=== PATIENT | female | born 1975 | race Caucasian/White ===

== ENCOUNTER → 2016-12-22 | Outpatient (CLI) | payer BC ==
[2016-12-22 11:34] LABS: Basophils # (A) 0.1 k/uL (0-0.2); Basophils % (A) 1 %; CH 29.7; CHCM 32.5; Eosinophils # (A) 0.1 k/uL (0-0.7); Eosinophils % (A) 1 %; HCT 46.4 % (34.0-46.0); HDW 2.19; HGB 14.4 gm/dL (11.4-16.0); Luc # (Auto) 0.14; Luc % (Auto) 2; Lymphocytes # (A) 2.9 k/uL (1.0-4.8); Lymphocytes % (A) 40 %; MCH 28.5 pg (25.0-35.0); MCHC 31.1 g/dL (31.0-37.0); MCV 91.7 fL (80.0-100.0); Mean Platelet Volume 6.5; Monocytes # (A) 0.3 k/uL (0-1.0); Monocytes % (A) 4 %; Neutrophils # (A) 3.7 k/uL (1.3-7.7); Neutrophils % (A) 52 %; RBC 5.06 m/uL (3.80-5.40); RDW 13.4 % (11.5-15.5); WBC 7.1 k/uL (3.8-10.6); WBC (Perox) 7.17
[2016-12-22 11:49] LABS: ALT 33 U/L (9-52); AST 24 U/L (14-36); Alkaline Phosphatase 61 U/L (38-126); Anion Gap 9 mmol/L; Blood Urea Nitrogen 20 mg/dL (7-17); Calcium 9.5 mg/dL (8.4-10.2); Carbon Dioxide 29 mmol/L (22-30); Chloride 104 mmol/L (98-107); Cholesterol 209 mg/dL (<200); Glucose 91 mg/dL (74-99); HDL Cholesterol 67 mg/dL (40-60); Non-African American GFR(MDRD) >60 (>60 ml/min/1.73 sqM); Potassium 4.5 mmol/L (3.5-5.1); Sodium 142 mmol/L (137-145); Total Bilirubin 0.6 mg/dL (0.2-1.3); Total Protein 7.6 g/dL (6.3-8.2); Triglycerides 127 mg/dL (<150)
== END | disposition home or self-care (01) ==
LOC: LABWHC1 10:52
PROVIDERS: ATTEND Physician Assistant Medical
DX: Z00.01 Encounter for general adult medical examination with abnormal findings (principal)
CPT/HCPCS: 36415; 80053; 80061; 84439; 84443; 85025

== ENCOUNTER → 2017-09-14 | Outpatient (CLI) | payer BC ==
--- NOTE | 2017-09-15 11:38 | MM ---
Reason for exam: screening (asymptomatic). Last mammogram was performed 1 year and 3 months ago. History: Patient is postmenopausal. Physical Findings: A clinical breast exam by your physician is recommended on an annual basis and results should be correlated with mammographic findings. MG Screening Mammo w CAD Bilateral CC and MLO view(s) were taken. Prior study comparison: June 23, 2016, bilateral MG screening mammo w CAD. April 10, 2015, bilateral MG screening mammo w CAD. The breast tissue is heterogeneously dense. This may lower the sensitivity of mammography. There is no discrete abnormality. No significant changes when compared with prior studies. ASSESSMENT: Negative, BI-RAD 1 RECOMMENDATION: Routine screening mammogram of both breasts in 1 year.
== END | disposition home or self-care (01) ==
LOC: RADMAMWWP 13:14
PROVIDERS: ATTEND Obstetrics & Gynecology
DX: Z12.31 Encounter for screening mammogram for malignant neoplasm of breast (principal)
CPT/HCPCS: 77067

== ENCOUNTER → 2018-10-16 | Outpatient (CLI) | payer BC ==
[2018-10-16 11:45] LABS: Basophils # (A) 0.1 k/uL (0-0.2); Basophils % (A) 1 %; Eosinophils # (A) 0.1 k/uL (0-0.7); Eosinophils % (A) 1 %; HCT 47.9 % (34.0-46.0); HGB 15.2 gm/dL (11.4-16.0); Lymphocytes % (A) 40 %; MCH 28.5 pg (25.0-35.0); MCHC 31.7 g/dL (31.0-37.0); MCV 89.7 fL (80.0-100.0); Mean Platelet Volume 6.5; Monocytes # (A) 0.2 k/uL (0-1.0); Monocytes % (A) 3 %; Neutrophils # (A) 3.9 k/uL (1.3-7.7); Neutrophils % (A) 53 %; Platelet Count 319 k/uL (150-450); RBC 5.34 m/uL (3.80-5.40); RDW 13.3 % (11.5-15.5); WBC 7.4 k/uL (3.8-10.6)
[2018-10-16 16:33] LABS: Albumin 4.6 g/dL (3.80-4.90); Albumin/Globulin Ratio 1.92 (1.60-3.17); Anion Gap 4.3 mmol/L (4.00-12.00); Calcium 9.6 mg/dL (8.7-10.3); Carbon Dioxide 28.7 mmol/L (21.6-31.8); Globulin 2.4 g/dL (1.6-3.3); Potassium 4.3 mmol/L (3.5-5.5); Total Bilirubin 0.4 mg/dL (0.2-1.2)
[2018-10-16 16:42] LABS: T4, Free (Free Thyroxine) 1.4 ng/dL (0.80-1.80)
== END ==
LOC: LABWHC1 11:10
PROVIDERS: ATTEND Physician Assistant Medical
DX: Z00.01 Encounter for general adult medical examination with abnormal findings (principal); E89.0 Postprocedural hypothyroidism; E78.5 Hyperlipidemia, unspecified
CPT/HCPCS: 36415; 80053; 80061; 84439; 84443; 85025

== ENCOUNTER → 2019-01-21 | Outpatient (CLI) | payer BC ==
--- NOTE | 2019-01-25 10:13 | MM ---
Reason for exam: screening (asymptomatic). Last mammogram was performed 1 year and 4 months ago. History: Patient is postmenopausal. Physical Findings: A clinical breast exam by your physician is recommended on an annual basis and results should be correlated with mammographic findings. MG Screening Mammo w CAD Bilateral CC and MLO view(s) were taken. Prior study comparison: September 14, 2017, bilateral MG screening mammo w CAD. June 23, 2016, bilateral MG screening mammo w CAD. The breast tissue is heterogeneously dense. This may lower the sensitivity of mammography. No suspicious abnormality. No significant changes when compared with prior studies. ASSESSMENT: Negative, BI-RAD 1 RECOMMENDATION: Routine screening mammogram of both breasts in 1 year.
== END | disposition home or self-care (01) ==
LOC: RADMAMWWP 08:51
PROVIDERS: ATTEND Family Medicine
DX: Z12.31 Encounter for screening mammogram for malignant neoplasm of breast (principal)
CPT/HCPCS: 77067

== ENCOUNTER → 2020-02-14 | Outpatient (CLI) | payer BC ==
--- NOTE | 2020-02-15 14:53 | MM ---
Reason for exam: screening (asymptomatic). Last mammogram was performed 1 year and 1 month ago. History: Patient is postmenopausal. Physical Findings: A clinical breast exam by your physician is recommended on an annual basis and results should be correlated with mammographic findings. MG Screening Mammo w CAD Bilateral CC and MLO view(s) were taken. Prior study comparison: January 21, 2019, bilateral MG screening mammo w CAD. September 14, 2017, bilateral MG screening mammo w CAD. The breast tissue is heterogeneously dense. This may lower the sensitivity of mammography. No significant changes when compared with prior studies. ASSESSMENT: Benign, BI-RAD 2 RECOMMENDATION: Routine screening mammogram of both breasts in 1 year.
== END | disposition home or self-care (01) ==
LOC: RADMAMWWP 14:28
PROVIDERS: ATTEND Family Medicine
DX: Z12.31 Encounter for screening mammogram for malignant neoplasm of breast (principal)
CPT/HCPCS: 77067

== ENCOUNTER → 2021-02-15 | Outpatient (CLI) | payer BC ==
--- NOTE | 2021-02-19 08:21 | MM ---
Reason for exam: screening (asymptomatic). Last mammogram was performed 1 year ago. History: Patient is postmenopausal. Physical Findings: A clinical breast exam by your physician is recommended on an annual basis and results should be correlated with mammographic findings. MG Screening Mammo w CAD Bilateral CC and MLO view(s) were taken. Prior study comparison: February 14, 2020, bilateral MG screening mammo w CAD. January 21, 2019, bilateral MG screening mammo w CAD. The breast tissue is heterogeneously dense. This may lower the sensitivity of mammography. ASSESSMENT: Negative, BI-RAD 1 RECOMMENDATION: Routine screening mammogram of both breasts in 1 year.
== END | disposition home or self-care (01) ==
LOC: RADMAMWWP 16:29
PROVIDERS: ATTEND Family Medicine
DX: Z12.31 Encounter for screening mammogram for malignant neoplasm of breast (principal); Z78.0 Asymptomatic menopausal state
CPT/HCPCS: 77067

== ENCOUNTER → 2022-02-27 | Outpatient (CLI) | payer BC ==
--- NOTE | 2022-02-28 13:30 | MM ---
Reason for Exam: Screening (asymptomatic). Last screening mammogram was performed 12 month(s) ago. Patient History: Menarche at age 9. First Full-Term at age 20. Postmenopausal. Risk Values: Estela 5 year model risk: 0.9%. NCI Lifetime model risk: 9.1%. Prior Study Comparison: 01/21/2019 Bilateral Screening Mammogram, [facility]. 02/14/2020 Bilateral Screening Mammogram, [facility]. 02/15/2021 Bilateral Screening Mammogram, [facility]. Tissue Density: The breast tissue is heterogeneously dense. This may lower the sensitivity of mammography. Findings: Analyzed By CAD. Findings appears stable in comparison images. No suspicious groups of microcalcifications, spiculated or lobular masses, architectural distortion or other secondary signs of malignancy are mammographically apparent. Overall Assessment: Benign, BI-RAD 2 Management: Screening Mammogram of both breasts in 1 year. A negative mammogram report should not preclude additional follow up of suspicious palpable abnormalities. Patient should continue monthly self breast exam. A clinical breast exam by your physician is recommended on an annual basis and results should be correlated with mammographic findings. Electronically signed and approved by: Kwasi Bauer D.O. Radiologis
== END | disposition home or self-care (01) ==
LOC: RADMAMWWP 09:18
PROVIDERS: ATTEND Family Medicine
DX: Z12.31 Encounter for screening mammogram for malignant neoplasm of breast (principal); Z78.0 Asymptomatic menopausal state
CPT/HCPCS: 77067

== ENCOUNTER → 2023-03-02 | Outpatient (CLI) | payer BC ==
--- NOTE | 2023-03-02 08:49 | MM ---
Reason for Exam: Screening (asymptomatic). Last screening mammogram was performed 12 month(s) ago. Patient History: Menarche at age 9. First Full-Term at age 20. Postmenopausal. Risk Values: Estela 5 year model risk: 0.9%. NCI Lifetime model risk: 8.9%. Prior Study Comparison: 02/14/2020 Bilateral Screening Mammogram, [facility]. 02/15/2021 Bilateral Screening Mammogram, [facility]. 02/27/2022 Bilateral MG screening mammo w CAD, [facility]. Tissue Density: The breast tissue is heterogeneously dense. This may lower the sensitivity of mammography. Findings: Analyzed By CAD. There is no suspicious group of microcalcifications or new suspicious mass in either breast. Overall Assessment: Negative, BI-RAD 1 Management: Screening Mammogram of both breasts in [address] [facility] will attempt to contact patient to return for supplemental views and ultrasound if indicated. Patient should continue monthly self-breast exams. A clinical breast exam by your physician is recommended on an annual basis. This exam should not preclude additional follow-up of suspicious palpable abnormalities. Note on Estela scores and lifetime risk: 1. A Estela score greater than 3% is considered moderate risk. If this is the case, consider specialist referral to assess eligibility for a risk reducing agent. 2. If overall lifetime risk for the development of breast cancer is 20% or higher, the patient may qualify for future screening with alternating mammogram and breast MRI. Electronically signed and approved by: Jose Wright DO
== END | disposition home or self-care (01) ==
LOC: RADMAMWWP 08:21
PROVIDERS: ATTEND Family Medicine
DX: Z12.31 Encounter for screening mammogram for malignant neoplasm of breast (principal); Z78.0 Asymptomatic menopausal state
CPT/HCPCS: 77067

== ENCOUNTER → 2023-12-19 | Outpatient (CLI) | payer BC ==
[2023-12-19 13:17] LABS: Basophils # (A) 0.05 X 10*3/uL (0.00-0.10); Basophils % (A) 0.7 %; Eosinophils # (A) 0.12 X 10*3/uL (0.04-0.35); Eosinophils % (A) 1.6 %; HCT 45.5 % (37.2-46.3); HGB 14.8 g/dL (12.0-15.0); Lymphocytes # (A) 3.21 X 10*3/uL (0.90-5.00); Lymphocytes % (A) 42.2 %; MCH 28.4 pg (27.0-32.0); MCHC 32.5 g/dL (32.0-37.0); MCV 87.2 FL (80.0-97.0); Mean Platelet Volume 9.4 FL (9.5-12.2); Monocytes # (A) 0.34 X 10*3/uL (0.20-1.00); Monocytes % (A) 4.5 %; NRBC Per 100 WBC 0 X 10*3/uL (0.00-0.01); Neutrophils # (A) 3.87 X 10*3/uL (1.80-7.70); Neutrophils % (A) 50.9 %; Platelet Count 323 X 10*3/uL (140-440); RBC 5.22 X 10*6/uL (4.10-5.20); RDW 13.3 % (11.5-14.5)
[2023-12-19 13:57] LABS: BUN/Creat Ratio 14.25 Ratio (12.00-20.00); Blood Urea Nitrogen 11.4 mg/dL (9.0-27.0); Chloride 103 mmol/L (96-109); Chol/HDL Ratio 3.26 Ratio; Glucose 95 mg/dL (70-110); LDL Cholesterol,Calculated 110.9 mg/dL (0.0-131.0); Potassium 4.8 mmol/L (3.5-5.5); Sodium 141 mmol/L (135-145)
[2023-12-19 13:58] LABS: ALT 36 U/L (8-44); AST 31 U/L (13-35); Albumin 4.7 g/dL (3.8-4.9); Albumin/Globulin Ratio 1.88 Ratio (1.60-3.17); Alkaline Phosphatase 77 U/L (41-126); Calcium 10.2 mg/dL (8.7-10.3); Carbon Dioxide 26.3 mmol/L (21.6-31.8); Globulin 2.5 g/dL (1.6-3.3); Total Bilirubin 0.3 mg/dL (0.3-1.2); Total Protein 7.2 g/dL (6.2-8.2)
== END | disposition home or self-care (01) ==
LOC: LABWHC1 07:15
PROVIDERS: ATTEND Nurse Practitioner Family
DX: Z00.01 Encounter for general adult medical examination with abnormal findings (principal); Z13.228 Encounter for screening for other metabolic disorders; Z13.29 Encounter for screening for other suspected endocrine disorder; E78.5 Hyperlipidemia, unspecified; E89.0 Postprocedural hypothyroidism
CPT/HCPCS: 36415; 80053; 80061; 82306; 83036; 84439; 84443; 85025

== ENCOUNTER → 2024-03-07 | Outpatient (CLI) | payer BC ==
--- NOTE | 2024-03-30 20:17 | MM ---
Reason for Exam: Screening (asymptomatic). Last mammogram was performed 1 year(s) and 1 month(s) ago. Patient History: Menarche at age 9. First Full-Term at age 20. Postmenopausal. Risk Values: Estela 5 year model risk: 0.9%. NCI Lifetime model risk: 8.8%. Prior Study Comparison: 02/15/2021 Bilateral Screening Mammogram, [facility]. 02/27/2022 Bilateral MG screening mammo w CAD, [facility]. 03/02/2023 Bilateral MG screening mammo w CAD, [facility]. Tissue Density: The breasts are heterogeneously dense, which may obscure small masses. Findings: Analyzed By CAD. Asymmetric density central posterior left MLO view is more defined and incompletely disperses on 3-D images. Not clearly Identified on the cc view. Further evaluation is recommended. A low axillary tail lymph node is now included in the [id number] on the right MLO view. Otherwise, no significant change. Overall Assessment: Incomplete: need additional imaging evaluation, BI-RAD 0 Management: Special View Mammogram of the left breast. Additional views to include spot 3-D MLO, 3-D lateral, 3-D XCCL, and 3-D XCCM views. [facility] will attempt to contact patient to return for supplemental views and ultrasound if indicated. Electronically signed and approved by: Edmund Loera M.D. Radiologist
== END | disposition home or self-care (01) ==
LOC: RADMAMWWP 16:30
PROVIDERS: ATTEND Family Medicine
DX: Z12.31 Encounter for screening mammogram for malignant neoplasm of breast (principal); Z78.0 Asymptomatic menopausal state; R92.333 Mammographic heterogeneous density, bilateral breasts
CPT/HCPCS: 77063; 77067

== ENCOUNTER → 2024-08-30 | Outpatient (CLI) | payer BC ==
--- NOTE | 2024-08-30 08:29 | MM ---
Reason for Exam: Additional evaluation requested from abnormal screening. Last screening mammogram was performed 5 month(s) ago. Patient History: Menarche at age 9. First Full-Term at age 20. Postmenopausal. Risk Values: Estela 5 year model risk: 0.9%. NCI Lifetime model risk: 8.8%. Prior Study Comparison: 02/27/2022 Bilateral MG screening mammo w CAD, [facility]. 03/02/2023 Bilateral MG screening mammo w CAD, [facility]. 03/07/2024 Bilateral MG 3D screening mammo w/cad, [facility]. Tissue Density: Left: There are scattered areas of fibroglandular density. Findings: Analyzed By CAD. Area of concern/asymmetry compresses out on spot compression imaging. No suspicious masses, calcifications or distortions. Overall Assessment: Benign, BI-RAD 2 Management: Screening Mammogram of both breasts in 1 year. Results were given to the patient verbally at the time of exam. Patient should continue monthly self-breast exams. A clinical breast exam by your physician is recommended on an annual basis. This exam should not preclude additional follow-up of suspicious palpable abnormalities. Note on Estela scores and lifetime risk: 1. A Estela score greater than 3% is considered moderate risk. If this is the case, consider specialist referral to assess eligibility for a risk reducing agent. 2. If overall lifetime risk for the development of breast cancer is 20% or higher, the patient may qualify for future screening with alternating mammogram and breast MRI. [facility], , 08/30/2024 8:27 AM. Electronically signed and approved by: Jose Wright DO
== END | disposition home or self-care (01) ==
LOC: RADMAMWWP 08:05
PROVIDERS: ATTEND Family Medicine
DX: R92.8 Other abnormal and inconclusive findings on diagnostic imaging of breast (principal); R92.322 Mammographic fibroglandular density, left breast; Z78.0 Asymptomatic menopausal state
CPT/HCPCS: 77061; 77065